=== PATIENT | male | born 1945 | race African-American/Black ===

== ENCOUNTER 2021-10-06 17:02 | Inpatient (IN) | payer OTHER, MEDICAID ==
[~2021-10-06] VITALS: Ht 170.2 cm; Wt 66.6 kg
[2021-10-06 18:55] LABS: Basophils # (auto) 0 10 ^3/uL (0-0.2); Eosinophils # (auto) 0.1 10 ^3/uL (0-0.8); Hemoglobin 8.2 g/dL (13.5-17.5); Lymphocytes # (auto) 1.4 10 ^3/uL (0.4-5.4); Monocytes # (auto) 0.3 10 ^3/uL (0-1.3); Neutrophils # (auto) 2.4 10 ^3/uL (1.6-8.6); White Blood Cell 4.2 10^3/uL (4.4-10.8)
[2021-10-06 18:58] LABS: Basophils % (auto) 1.1 % (0.0-2.0); Eosinophils % (auto) 1.8 % (0.0-7.0); Hematocrit 25.4 % (41.0-53.0); Lymphocytes % (auto) 32.8 % (10.0-50.0); Mean Corpuscular Hemoglobin 22.7 pg (28.0-32.0); Mean Corpuscular Hgb Conc. 32.3 g/dL (32.0-36.0); Mean Corpuscular Volume 70.3 fL (80.0-100.0); Neutrophils % (auto) 57.3 % (37.0-80.0); Nucleated Red Blood Cells % 0.1 %; Red Blood Cells 3.62 10^6/uL (4.5-5.90)
[2021-10-06 19:03] LABS: Red Cell Distribution Width 21.2 % (11.8-14.3)
[2021-10-06 19:16] LABS: INR 1.38 (0.9-1.15)
[2021-10-06 19:21] LABS: Albumin 2.7 g/dL (3.4-5.0); Anion Gap 9 (5-15); Blood Urea Nitrogen 15 mg/dL (7-18); Calcium 7.6 mg/dL (8.5-10.1); Carbon Dioxide 22 mmol/L (21-32); Chloride 113 mmol/L (98-107); Glucose 80 mg/dL (74-106); Lipase 166 U/L (73-393); Potassium 3.8 mmol/L (3.5-5.1); Sodium 144 mmol/L (136-145)
[2021-10-06 19:23] LABS: Aspartate Aminotransferase 8 U/L (15-37); BUN/Creatinine Ratio 25.4; GFR African American 171 mL/min; GFR Non-African American 142 mL/min
[2021-10-06 19:37] LABS: Alanine Aminotransferase 8 U/L (16-61); Alkaline Phosphatase 36 U/L (45-117); Bilirubin, Total 0.4 mg/dL (0.2-1.0); Total Protein 5.9 g/dL (6.4-8.2)
[2021-10-06] MEDS ORDERED: MORPHINE SULFATE INJECTION 2 MG/ML SYRG IV PRN (23:15)
[2021-10-06] MEDS ORDERED: MORPHINE SULFATE 4 MG/ML SYR/VIAL IV PRN (23:15)
[2021-10-06] MEDS ORDERED: PANTOPRAZOLE 40 MG/10 ML VIAL INJ IV ONE (23:15)
[2021-10-06] MEDS ORDERED: ONDANSETRON HCL 4 MG/2 ML VIAL IV PRN (23:15)
[2021-10-06] MEDS ORDERED: NITROGLYCERIN 0.4 MG SL TAB SL PRN (23:15)
[2021-10-06] MEDS ORDERED: DEXTROSE (50%) 50ML SYRG IV PRN (23:30)
[2021-10-06] MEDS ORDERED: hydrALAZINE HCL 20 MG/ML VL IV PRN (23:30)
[2021-10-07] MEDS: PANTOPRAZOLE 40mg/50ML NS AE 50 ML IV SCH ×4 (00:10→13:50)
[2021-10-07] MEDS: ACCU-CHEK COMFORT CURVE STRIP VI SCH ×3 (00:15→11:50)
[2021-10-07 03:51] VITALS: BP 155/74
[2021-10-07 05:00] VITALS: BP 154/70
[2021-10-07] MEDS: InsuLIN REG 1unit/0.01ml Soln (100units/ml) SC SCH ×3 (05:49→11:50)
[2021-10-07 06:40] LABS: Basophils # (auto) 0 10 ^3/uL (0-0.2); Eosinophils # (auto) 0.1 10 ^3/uL (0-0.8); Lymphocytes # (auto) 1.3 10 ^3/uL (0.4-5.4); Mean Corpuscular Volume 70.2 fL (80.0-100.0); Monocytes # (auto) 0.3 10 ^3/uL (0-1.3); Nucleated Red Blood Cells % 0.1 %; White Blood Cell 4.7 10^3/uL (4.4-10.8)
[2021-10-07 06:42] LABS: Basophils % (auto) 0.6 % (0.0-2.0); Eosinophils % (auto) 1.6 % (0.0-7.0); Hematocrit 25.5 % (41.0-53.0); Hemoglobin 8.2 g/dL (13.5-17.5); Lymphocytes % (auto) 28.2 % (10.0-50.0); Mean Corpuscular Hemoglobin 22.5 pg (28.0-32.0); Monocytes % (auto) 6.7 % (0.0-12.0); Neutrophils # (auto) 2.9 10 ^3/uL (1.6-8.6); Neutrophils % (auto) 62.9 % (37.0-80.0); Red Blood Cells 3.63 10^6/uL (4.5-5.90); Red Cell Distribution Width 21.2 % (11.8-14.3)
[2021-10-07 07:01] LABS: Albumin 2.8 g/dL (3.4-5.0); Calcium 7.7 mg/dL (8.5-10.1); Potassium 3.4 mmol/L (3.5-5.1)
[2021-10-07 07:04] LABS: BUN/Creatinine Ratio 31.3
[2021-10-07 07:07] LABS: Bilirubin, Total 0.5 mg/dL (0.2-1.0); Total Protein 6.1 g/dL (6.4-8.2)
[2021-10-07 08:00] VITALS: BP 158/68
[2021-10-07 11:09] LABS: Basophils # (auto) 0 10 ^3/uL (0-0.2); Eosinophils # (auto) 0 10 ^3/uL (0-0.8); Hemoglobin 8.2 g/dL (13.5-17.5); Lymphocytes # (auto) 1.1 10 ^3/uL (0.4-5.4); Monocytes # (auto) 0.2 10 ^3/uL (0-1.3); Neutrophils # (auto) 2.8 10 ^3/uL (1.6-8.6); Nucleated Red Blood Cells % 0.1 %; White Blood Cell 4.2 10^3/uL (4.4-10.8)
[2021-10-07 11:10] LABS: Basophils % (auto) 0.6 % (0.0-2.0); Eosinophils % (auto) 0.6 % (0.0-7.0); Hematocrit 26.3 % (41.0-53.0); Mean Corpuscular Hemoglobin 22.1 pg (28.0-32.0); Mean Corpuscular Hgb Conc. 31.2 g/dL (32.0-36.0); Mean Corpuscular Volume 70.7 fL (80.0-100.0); Monocytes % (auto) 5.3 % (0.0-12.0); Neutrophils % (auto) 66.5 % (37.0-80.0); Red Blood Cells 3.72 10^6/uL (4.5-5.90); Red Cell Distribution Width 21.6 % (11.8-14.3)
[2021-10-07 12:00] VITALS: BP 164/84
[2021-10-07 13:15] VITALS: BP 164/85
== END 2021-10-07 14:55 | disposition hospice, home (50) | DRG 379 ==
LOC: EDBD 17:02 → ER 17:02 → TELE 23:12 → CENTRAL 23:58 → TELE-CENTR 10-07 07:10
PROVIDERS: ADMIT Hospitalist; ATTEND Hospitalist
DX: K62.5 Hemorrhage of anus and rectum (principal); I25.10 Atherosclerotic heart disease of native coronary artery without angina pectoris; E11.9 Type 2 diabetes mellitus without complications; I11.0 Hypertensive heart disease with heart failure; Z20.822 Contact with and (suspected) exposure to COVID-19; I50.9 Heart failure, unspecified; Z51.5 Encounter for palliative care; Z74.01 Bed confinement status; Z86.73 Personal history of transient ischemic attack (TIA), and cerebral infarction without residual deficits; Z95.5 Presence of coronary angioplasty implant and graft; Z79.84 Long term (current) use of oral hypoglycemic drugs
CPT/HCPCS: 36415; 74176; 80053; 82962; 83690; 85025; 85610; 85730; 86850; 86900; 86901; 93005; 96374; C9113; G0378

== ENCOUNTER 2022-12-29 18:06 | Inpatient (IN) | payer OTHER ==
[~2022-12-29] VITALS: Ht 167.6 cm; Wt 65.5 kg
[2022-12-29] MEDS ORDERED: IOHEXOL 300 MG/ML 100ML BOTTLE IJ ONE (18:49)
[2022-12-29 19:10] LABS: Basophils # (auto) 0 10 ^3/uL (0-0.2); Eosinophils # (auto) 0.1 10 ^3/uL (0-0.8); Eosinophils % (auto) 2.6 % (0.0-7.0); Hematocrit 24.6 % (41.0-53.0); Red Blood Cells 3.32 10^6/uL (4.5-5.90)
[2022-12-29 19:21] LABS: Hemoglobin 7.9 g/dL (13.5-17.5); Lymphocytes # (auto) 1.1 10 ^3/uL (0.4-5.4); Lymphocytes % (auto) 30.1 % (10.0-50.0); Mean Corpuscular Hemoglobin 23.9 pg (28.0-32.0); Mean Corpuscular Hgb Conc. 32.3 g/dL (32.0-36.0); Mean Corpuscular Volume 74.1 fL (80.0-100.0); Monocytes # (auto) 0.4 10 ^3/uL (0-1.3); Monocytes % (auto) 10.1 % (0.0-12.0); Neutrophils # (auto) 2.1 10 ^3/uL (1.6-8.6); Neutrophils % (auto) 56.2 % (37.0-80.0); Nucleated Red Blood Cells % 0.1 %; Red Cell Distribution Width 18.7 % (11.8-14.3); White Blood Cell 3.7 10^3/uL (4.4-10.8)
[2022-12-29 19:28] LABS: Albumin 2.5 g/dL (3.4-5.0); BUN/Creatinine Ratio 21.1 (10.0-20.0); Calcium 7.7 mg/dL (8.5-10.1); Potassium 3.9 mmol/L (3.5-5.1)
[2022-12-29 19:29] LABS: INR 1.29 (0.9-1.15)
[2022-12-29 19:30] LABS: Bilirubin, Total 0.4 mg/dL (0.2-1.0); Total Protein 5.9 g/dL (6.4-8.2)
[2022-12-30] MEDS ORDERED: SOD CHL 0.45% 1,000 ML IV ONE (06:15)
[2022-12-30] MEDS ORDERED: hydrALAZINE HCL 20 MG/ML VL IV ONE (06:15)
[2022-12-30] MEDS ORDERED: MORPHINE SULFATE INJ 2 MG/ml SYRG IV PRN ×2 (07:30)
[2022-12-30] MEDS ORDERED: DEXTROSE (50%) 50ML SYRG IV PRN (07:30)
[2022-12-30] MEDS ORDERED: ACETAMINOPHEN 325 MG TAB PO PRN (07:30)
[2022-12-30] MEDS ORDERED: AZITHROMYCIN 500MG/ 250ML 250 ML IV ONE (07:30)
[2022-12-30] MEDS ORDERED: DOCUSATE SOD 100 MG CAP PO PRN (07:30)
[2022-12-30] MEDS ORDERED: NITROGLYCERIN 0.4 MG SL TAB SL PRN (07:30)
[2022-12-30] MEDS ORDERED: HYDROcodone-ACET 5/325MG TAB PO PRN (07:30)
[2022-12-30] MEDS ORDERED: ONDANSETRON HCL 4 MG/2 ML VIAL IV PRN (07:30)
[2022-12-30 08:05] LABS: Basophils # (auto) 0 10 ^3/uL (0-0.2); Eosinophils # (auto) 0.1 10 ^3/uL (0-0.8); Lymphocytes # (auto) 0.7 10 ^3/uL (0.4-5.4); Monocytes # (auto) 0.3 10 ^3/uL (0-1.3); Monocytes % (auto) 6.4 % (0.0-12.0); Neutrophils # (auto) 3.4 10 ^3/uL (1.6-8.6); Nucleated Red Blood Cells % 0.1 %
[2022-12-30 08:07] LABS: Basophils % (auto) 0.9 % (0.0-2.0); Eosinophils % (auto) 1.7 % (0.0-7.0); Hematocrit 26.3 % (41.0-53.0); Hemoglobin 8.2 g/dL (13.5-17.5); Mean Corpuscular Hgb Conc. 31.3 g/dL (32.0-36.0); Mean Corpuscular Volume 73.6 fL (80.0-100.0); Red Blood Cells 3.58 10^6/uL (4.5-5.90); Red Cell Distribution Width 18.4 % (11.8-14.3); White Blood Cell 4.6 10^3/uL (4.4-10.8)
[2022-12-30 08:38] LABS: Albumin 2.9 g/dL (3.4-5.0); Calcium 7.9 mg/dL (8.5-10.1); Potassium 3.3 mmol/L (3.5-5.1)
[2022-12-30 08:41] LABS: BUN/Creatinine Ratio 22.2 (10.0-20.0); Bilirubin, Total 0.6 mg/dL (0.2-1.0); Total Protein 6.6 g/dL (6.4-8.2)
[2022-12-30 08:46] LABS: Urine Bacteria FEW /hpf (None Seen); Urine Blood TRACE /uL (Negative); Urine Mucus FEW (None Seen); Urine Specific Gravity 1.018 (1.001-1.035); Urine WBC 39 /hpf (0 - 3)
[2022-12-30] MEDS: amLODIPine BESYLATE 5 MG TAB PO SCH (11:23)
[2022-12-30] MEDS: InsuLIN REG 1unit/0.01ml Soln (100units/ml) SC SCH ×3 (12:14→22:00)
[2022-12-30] MEDS: ACCU-CHEK COMFORT CURVE STRIP VI SCH ×3 (12:14→22:00)
[2022-12-30] MEDS: PANTOPRAZOLE 40mg/50ML NS AE 50 ML IV SCH ×3 (13:04→18:50)
[2022-12-30] MEDS ORDERED: cefTRIAXone 1GM/50ML D5W 50 ML IV ONE (13:15)
[2022-12-30] MEDS: D5W/LACTATED RINGERS 1,000 ML IV SCH (15:59)
[2022-12-31] MEDS: PANTOPRAZOLE 40mg/50ML NS AE 50 ML IV SCH ×5 (00:04→19:57)
[2022-12-31] MEDS: D5W/LACTATED RINGERS 1,000 ML IV SCH (03:30)
[2022-12-31 05:00] VITALS: BP 132/51
[2022-12-31] MEDS ORDERED: PNEUMOCOCCAL VACC POLYS 25 MCG/0.5 ML VIAL IM ONE (05:00)
[2022-12-31 06:11] LABS: Basophils # (auto) 0 10 ^3/uL (0-0.2); Eosinophils # (auto) 0.1 10 ^3/uL (0-0.8); Hematocrit 26.6 % (41.0-53.0); Hemoglobin 8.1 g/dL (13.5-17.5); Monocytes # (auto) 0.4 10 ^3/uL (0-1.3); Monocytes % (auto) 9.4 % (0.0-12.0)
[2022-12-31 06:18] LABS: Basophils % (auto) 0.9 % (0.0-2.0); Eosinophils % (auto) 2.2 % (0.0-7.0); Lymphocytes % (auto) 23.3 % (10.0-50.0); Mean Corpuscular Hemoglobin 23.4 pg (28.0-32.0); Mean Corpuscular Hgb Conc. 30.5 g/dL (32.0-36.0); Mean Corpuscular Volume 76.5 fL (80.0-100.0); Neutrophils # (auto) 2.6 10 ^3/uL (1.6-8.6); Neutrophils % (auto) 64.2 % (37.0-80.0); Nucleated Red Blood Cells % 0.3 %; Red Blood Cells 3.48 10^6/uL (4.5-5.90); Red Cell Distribution Width 18.4 % (11.8-14.3); White Blood Cell 4.1 10^3/uL (4.4-10.8)
[2022-12-31 06:42] LABS: Chloride 110 mmol/L (98-107); Potassium 3.7 mmol/L (3.5-5.1); Sodium 142 mmol/L (136-145)
[2022-12-31 06:50] LABS: Alanine Aminotransferase < 6 U/L (16-61); Albumin 2.9 g/dL (3.4-5.0); Alkaline Phosphatase 47 U/L (45-117); Anion Gap 6 (5-15); Aspartate Aminotransferase 10 U/L (15-37); BUN/Creatinine Ratio 23.1 (10.0-20.0); Bilirubin, Total 0.4 mg/dL (0.2-1.0); Blood Urea Nitrogen 18 mg/dL (7-18); Calcium 8.1 mg/dL (8.5-10.1); Carbon Dioxide 26 mmol/L (21-32); GFR African American 124 mL/min; GFR Non-African American 102 mL/min; Glucose 145 mg/dL (74-106); Total Protein 6.3 g/dL (6.4-8.2)
[2022-12-31] MEDS: InsuLIN REG 1unit/0.01ml Soln (100units/ml) SC SCH ×4 (07:06→22:00)
[2022-12-31] MEDS: ACCU-CHEK COMFORT CURVE STRIP VI SCH ×4 (07:51→22:00)
[2022-12-31 09:00] VITALS: BP 157/70
[2022-12-31] MEDS: cefTRIAXone 1GM/50ML D5W 50 ML IV SCH (09:02)
[2022-12-31] MEDS: amLODIPine BESYLATE 5 MG TAB PO SCH (09:09)
[2022-12-31] MEDS: AZITHROMYCIN 500MG/ 250ML 250 ML IV SCH (09:11)
[2022-12-31 13:00] VITALS: BP 137/62
[2022-12-31 17:00] VITALS: BP 151/76
[2022-12-31 17:39] LABS: Cholesterol 160 mg/dL (< 200); HDL Cholesterol 40 mg/dL (40-59); LDL Cholesterol 114 mg/dL (< 100); Triglycerides 43 mg/dL (< 150)
[2022-12-31] MEDS: FUROSEMIDE 20 MG/2 ML VIAL IV SCH (18:18)
[2022-12-31] MEDS: POTASSIUM CHL 20 Meq TABLET PO SCH (18:18)
[2022-12-31] MEDS ORDERED: METF-372 PO (20:08)
[2022-12-31] MEDS ORDERED: SPIR25TA8 PO (20:43)
[2022-12-31] MEDS ORDERED: ZOLP5TAB5 PO (20:43)
[2022-12-31] MEDS ORDERED: LORA-655 PO (20:43)
[2022-12-31] MEDS ORDERED: CITA10TA5 PO (20:43)
[2022-12-31] MEDS ORDERED: ALBUAER3 IN (20:43)
[2022-12-31] MEDS ORDERED: PROM2SYP2 PO (20:43)
[2022-12-31] MEDS ORDERED: CARV25TA55 PO (20:43)
[2022-12-31] MEDS ORDERED: METF-370 PO (20:43)
[2022-12-31] MEDS ORDERED: DIPH2.5T73 PO ×2 (20:43)
[2022-12-31] MEDS ORDERED: PANT40T PO (20:43)
[2022-12-31 22:00] VITALS: BP 162/78
[2022-12-31] MEDS: ATORVASTATIN 20 MG TAB PO SCH (22:50)
[2022-12-31] MEDS: CARVEDILOL 3.125 MG TAB PO SCH (22:50)
[2023-01-01] MEDS: D5W/LACTATED RINGERS 1,000 ML IV SCH ×2 (01:59→19:30)
[2023-01-01] MEDS: PANTOPRAZOLE 40mg/50ML NS AE 50 ML IV SCH ×5 (01:59→20:09)
[2023-01-01 05:00] VITALS: BP 180/76
[2023-01-01] MEDS: hydrALAZINE HCL 20 MG/ML VL IV PRN ×2 (06:12→22:33)
[2023-01-01] MEDS: InsuLIN REG 1unit/0.01ml Soln (100units/ml) SC SCH ×4 (06:14→21:44)
[2023-01-01] MEDS: ACCU-CHEK COMFORT CURVE STRIP VI SCH ×4 (06:14→21:44)
[2023-01-01 07:25] LABS: Basophils # (auto) 0 10 ^3/uL (0-0.2); Eosinophils # (auto) 0.1 10 ^3/uL (0-0.8); Mean Corpuscular Hemoglobin 23.3 pg (28.0-32.0); Monocytes # (auto) 0.5 10 ^3/uL (0-1.3); Monocytes % (auto) 10.2 % (0.0-12.0); Neutrophils # (auto) 2.9 10 ^3/uL (1.6-8.6)
[2023-01-01 07:27] LABS: Basophils % (auto) 0.6 % (0.0-2.0); Eosinophils % (auto) 1.5 % (0.0-7.0); Hematocrit 29.9 % (41.0-53.0); Hemoglobin 9.3 g/dL (13.5-17.5); Lymphocytes % (auto) 22.9 % (10.0-50.0); Mean Corpuscular Hgb Conc. 31.1 g/dL (32.0-36.0); Neutrophils % (auto) 64.8 % (37.0-80.0); Nucleated Red Blood Cells % 0.3 %; Red Blood Cells 3.99 10^6/uL (4.5-5.90); Red Cell Distribution Width 18.5 % (11.8-14.3); White Blood Cell 4.5 10^3/uL (4.4-10.8)
[2023-01-01 07:35] LABS: BUN/Creatinine Ratio 22.4 (10.0-20.0); Calcium 8.4 mg/dL (8.5-10.1); Magnesium 1.5 mg/dL (1.6-2.6); Potassium 3.5 mmol/L (3.5-5.1)
[2023-01-01 09:28] VITALS: BP 151/74
[2023-01-01] MEDS: cefTRIAXone 1GM/50ML D5W 50 ML IV SCH (09:33)
[2023-01-01] MEDS: AZITHROMYCIN 500MG/ 250ML 250 ML IV SCH (09:33)
[2023-01-01] MEDS: amLODIPine BESYLATE 5 MG TAB PO SCH (09:34)
[2023-01-01] MEDS: POTASSIUM CHL 20 Meq TABLET PO SCH (09:34)
[2023-01-01] MEDS: CARVEDILOL 3.125 MG TAB PO SCH ×2 (09:34→22:00)
[2023-01-01] MEDS: FUROSEMIDE 20 MG/2 ML VIAL IV SCH (10:00)
[2023-01-01 13:25] VITALS: BP 181/76
[2023-01-01] MEDS ORDERED: cloNIDine HCL 0.1 MG TAB PO PRN (14:45)
[2023-01-01 15:11] VITALS: BP 142/81
[2023-01-01 17:56] VITALS: BP 137/51
[2023-01-01] MEDS ORDERED: Ensure HIGH Protein Chocolate 8oz Bottle PO SCH (18:00)
[2023-01-01] MEDS: Glucerna Carbsteady SHAKE Stawberry 8oz PO SCH (18:21)
[2023-01-01] MEDS ORDERED: LORazepam 2MG/ML-1ML VIAL IV PRN (21:15)
[2023-01-01] MEDS: ATORVASTATIN 20 MG TAB PO SCH (21:23)
[2023-01-01] MEDS: POTASSIUM CHL 20MEQ/100ML 100 ML IV SCH (21:27)
[2023-01-01 22:00] VITALS: BP 162/58
[2023-01-01 23:17] LABS: Free T4 (Free Thyroxine) 1.02 ng/dL (0.89-1.76)
[2023-01-01 23:18] LABS: Folate (Folic Acid) 8.93 ng/mL (5.38-24)
[2023-01-02] MEDS: POTASSIUM CHL 20MEQ/100ML 100 ML IV SCH (00:10)
[2023-01-02] MEDS: PANTOPRAZOLE 40mg/50ML NS AE 50 ML IV SCH ×5 (01:25→21:15)
[2023-01-02 05:00] VITALS: BP 139/60
[2023-01-02] MEDS: ACCU-CHEK COMFORT CURVE STRIP VI SCH ×4 (05:40→21:15)
[2023-01-02] MEDS: InsuLIN REG 1unit/0.01ml Soln (100units/ml) SC SCH ×4 (05:41→21:16)
[2023-01-02 06:19] LABS: Basophils # (auto) 0 10 ^3/uL (0-0.2); Eosinophils # (auto) 0.1 10 ^3/uL (0-0.8); Hemoglobin 9.2 g/dL (13.5-17.5); Monocytes # (auto) 0.5 10 ^3/uL (0-1.3); Neutrophils # (auto) 2.4 10 ^3/uL (1.6-8.6); Nucleated Red Blood Cells % 0.1 %; Red Blood Cells 3.96 10^6/uL (4.5-5.90); White Blood Cell 4.1 10^3/uL (4.4-10.8)
[2023-01-02 06:21] LABS: Basophils % (auto) 0.7 % (0.0-2.0); Eosinophils % (auto) 1.9 % (0.0-7.0); Hematocrit 28.8 % (41.0-53.0); Lymphocytes % (auto) 25.8 % (10.0-50.0); Mean Corpuscular Hemoglobin 23.1 pg (28.0-32.0); Mean Corpuscular Hgb Conc. 31.8 g/dL (32.0-36.0); Mean Corpuscular Volume 72.6 fL (80.0-100.0); Monocytes % (auto) 12.9 % (0.0-12.0); Neutrophils % (auto) 58.7 % (37.0-80.0); Red Cell Distribution Width 18.7 % (11.8-14.3)
[2023-01-02 06:37] LABS: Calcium 8.4 mg/dL (8.5-10.1); Potassium 3.7 mmol/L (3.5-5.1)
[2023-01-02 06:40] LABS: BUN/Creatinine Ratio 19.7 (10.0-20.0); Magnesium 1.3 mg/dL (1.6-2.6)
[2023-01-02] MEDS: Glucerna Carbsteady SHAKE Stawberry 8oz PO SCH ×3 (08:22→18:11)
[2023-01-02] MEDS: cefTRIAXone 1GM/50ML D5W 50 ML IV SCH (08:48)
[2023-01-02 09:00] VITALS: BP_SYST 158; BP_SYST 160; BP_DIAS 71; BP_DIAS 78
[2023-01-02] MEDS: AZITHROMYCIN 500MG/ 250ML 250 ML IV SCH (09:40)
[2023-01-02] MEDS: POTASSIUM CHL 20 Meq TABLET PO SCH (09:43)
[2023-01-02] MEDS: CARVEDILOL 3.125 MG TAB PO SCH ×2 (09:43→21:16)
[2023-01-02] MEDS: FUROSEMIDE 20 MG/2 ML VIAL IV SCH (09:43)
[2023-01-02] MEDS: amLODIPine BESYLATE 5 MG TAB PO SCH (09:44)
[2023-01-02] MEDS: MAGNESIUM SULFATE 1GM/100ML 100 ML IV SCH ×2 (12:25→13:38)
[2023-01-02 13:00] VITALS: BP 131/58
[2023-01-02] MEDS: D5W/LACTATED RINGERS 1,000 ML IV SCH ×2 (15:30→17:45)
[2023-01-02 17:40] VITALS: BP 153/63
[2023-01-02] MEDS: ATORVASTATIN 20 MG TAB PO SCH (21:15)
[2023-01-02 22:00] VITALS: BP 151/62
[2023-01-03] MEDS: PANTOPRAZOLE 40mg/50ML NS AE 50 ML IV SCH ×4 (02:19→15:43)
[2023-01-03 05:00] VITALS: BP 135/47
[2023-01-03] MEDS: InsuLIN REG 1unit/0.01ml Soln (100units/ml) SC SCH ×3 (05:45→17:00)
[2023-01-03] MEDS: ACCU-CHEK COMFORT CURVE STRIP VI SCH ×3 (05:45→17:00)
[2023-01-03 06:20] LABS: Basophils # (auto) 0 10 ^3/uL (0-0.2); Eosinophils # (auto) 0.1 10 ^3/uL (0-0.8); Eosinophils % (auto) 2.2 % (0.0-7.0); Monocytes # (auto) 0.6 10 ^3/uL (0-1.3); Neutrophils # (auto) 2.8 10 ^3/uL (1.6-8.6); Nucleated Red Blood Cells % 0.1 %
[2023-01-03 06:23] LABS: Basophils % (auto) 0.7 % (0.0-2.0); Hematocrit 26.1 % (41.0-53.0); Lymphocytes % (auto) 21.6 % (10.0-50.0); Mean Corpuscular Hgb Conc. 30.9 g/dL (32.0-36.0); Mean Corpuscular Volume 74.5 fL (80.0-100.0); Monocytes % (auto) 13.2 % (0.0-12.0); Neutrophils % (auto) 62.3 % (37.0-80.0); Red Cell Distribution Width 18.2 % (11.8-14.3); White Blood Cell 4.5 10^3/uL (4.4-10.8)
[2023-01-03 06:30] LABS: Albumin 2.8 g/dL (3.4-5.0); Calcium 8.2 mg/dL (8.5-10.1); Magnesium 2.2 mg/dL (1.6-2.6); Potassium 4.5 mmol/L (3.5-5.1)
[2023-01-03 06:34] LABS: BUN/Creatinine Ratio 29.4 (10.0-20.0); Bilirubin, Total 0.5 mg/dL (0.2-1.0)
[2023-01-03] MEDS: D5W/LACTATED RINGERS 1,000 ML IV SCH (07:19)
[2023-01-03 08:00] VITALS: BP 150/64
[2023-01-03] MEDS: Glucerna Carbsteady SHAKE Stawberry 8oz PO SCH ×3 (08:00→18:04)
[2023-01-03 09:00] VITALS: BP 153/71
[2023-01-03] MEDS: cefTRIAXone 1GM/50ML D5W 50 ML IV SCH (10:36)
[2023-01-03] MEDS: FUROSEMIDE 20 MG/2 ML VIAL IV SCH (10:48)
[2023-01-03] MEDS: CARVEDILOL 3.125 MG TAB PO SCH (10:52)
[2023-01-03] MEDS: POTASSIUM CHL 20 Meq TABLET PO SCH (10:53)
[2023-01-03] MEDS: amLODIPine BESYLATE 5 MG TAB PO SCH (10:56)
[2023-01-03] MEDS: AZITHROMYCIN 500MG/ 250ML 250 ML IV SCH (12:47)
[2023-01-03 13:00] VITALS: BP 150/64
[2023-01-03 17:00] VITALS: BP 122/56
[2023-01-03 18:36] VITALS: BP 150/64
== END 2023-01-03 18:58 | DRG 871 ==
LOC: EDBD 18:06 → ER 18:06 → TELE 12-30 07:43 → TELE-WESTW 12-30 22:36
PROVIDERS: ADMIT Nurse Practitioner Family; ATTEND Family Medicine
DX: A41.9 Sepsis, unspecified organism (principal); G93.41 Metabolic encephalopathy; J18.9 Pneumonia, unspecified organism; I50.43 Acute on chronic combined systolic (congestive) and diastolic (congestive) heart failure; K57.31 Diverticulosis of large intestine without perforation or abscess with bleeding; D62 Acute posthemorrhagic anemia; J44.0 Chronic obstructive pulmonary disease with (acute) lower respiratory infection; J44.1 Chronic obstructive pulmonary disease with (acute) exacerbation; J91.8 Pleural effusion in other conditions classified elsewhere; N39.0 Urinary tract infection, site not specified; Z20.822 Contact with and (suspected) exposure to COVID-19; F03.90 Unspecified dementia, unspecified severity, without behavioral disturbance, psychotic disturbance, mood disturbance, and anxiety; E11.65 Type 2 diabetes mellitus with hyperglycemia; F32.A Depression, unspecified; I16.0 Hypertensive urgency; I11.0 Hypertensive heart disease with heart failure; I25.10 Atherosclerotic heart disease of native coronary artery without angina pectoris; I25.2 Old myocardial infarction; Z74.01 Bed confinement status; Z86.73 Personal history of transient ischemic attack (TIA), and cerebral infarction without residual deficits; Z82.49 Family history of ischemic heart disease and other diseases of the circulatory system; Z95.1 Presence of aortocoronary bypass graft; Z95.5 Presence of coronary angioplasty implant and graft
CPT/HCPCS: 36415; 70551; 71045; 74177; 80048; 80053; 80061; 81001; 82270; 82607; 82746; 82962; 83036; 83735; 83880; 84439; 84443; 84484; 85025; 85379; 85610; 86850; 86900; 86901; 86920; 87040; 87086; 87426; 93005; 93306; 93970; 95819; 97163; G0378; J0696; J1815; J3480